=== PATIENT | female | born 1960 | race African-American/Black ===

== ENCOUNTER 2024-01-31 13:22 | Emergency (ER) | payer OTHER ==
[~2024-01-31] VITALS: Ht 165.1 cm; Wt 65.0 kg
[2024-01-31 13:37] VITALS: BP 163/68; PULSE 72; RESP 16; O2SAT 97
[2024-01-31 15:39] VITALS: TEMP 98
[2024-01-31] MEDS: ACETAMINOPHEN 325MG TABLET PO ONE (15:39)
== END 2024-01-31 16:24 | disposition home or self-care (01) ==
LOC: ER 14:28
DX: M54.9 Dorsalgia, unspecified (principal); N18.6 End stage renal disease; I12.0 Hypertensive chronic kidney disease with stage 5 chronic kidney disease or end stage renal disease; E11.9 Type 2 diabetes mellitus without complications; Z99.2 Dependence on renal dialysis
CPT/HCPCS: 99283